=== PATIENT | male | born 1960 | race Caucasian/White ===

== ENCOUNTER 2021-02-13 22:43 | Inpatient (IN) | payer MEDICAID ==
[~2021-02-13] VITALS: Ht 175.3 cm; Wt 74.6 kg
--- NOTE | ~2021-02-13 | HEMODYNAMI ---
PATIENT:ELVIRA TADEO MEDICAL RECORD: [id number] : 56 LOCATION:[facility] D.[id number] ADMISSION DATE: 02/14/21 Generatedon:111:53 Patient name: ELVIRA TADEO Patient #: [id number] SSN: DO B: 1960 Date of study: 02/14/2021 Page: Of Hemodynamic Procedure Report Patient Data Patient Demographics Procedure consent was obtained First Name: ELVIRA Gender: Male Last Name: SHWETHA : 1960 Patient #: [id number] Age: 60 year(s) Race: Additional ID: [id number] Contact details Address: [address] State: [place] City: [place] Zip code: [address] Past Medical History Allergies: No known allergies Admission Admission Data Admission Date: 02/14/2021 Admission Time: 4:38 Arrival Date: 03/16/2021 Arrival Time: 0:00 Admit Source: Other Insurance Payor: Private Room #: [id number] health insurance Height (in.): 68.9 BSA: 1.85 (m2) Height (cm.): 175 BMI: 22.86 (kg/m2) Weight (lbs.): 154.32 Weight (kg.): 70 Lab Results Lab Result Date: 02/14/2021 Lab Result Time: 0:00 Biochemistry Name Units Result Min Max BUN mg/dl 22 --(----)-* 7 18 Creatinine mg/dl 1.4 --(----)*- 0.6 1.3 eGFR ml/min 54 *-(----)-- 90 120 NONAFRICAN CBC Name Units Result Min Max Hematocrit % 43.4 --(*---)-- 42 54 Hemoglobin g/dl 14 --(*---)-- 13.5 17.5 Procedure Procedure Types Cath Procedure Diagnostic Procedure C [facility] w/Coronaries Sedation Charges Moderate Sedation 10-24 minutes Procedure Description Procedure Date Procedure Date: 02/14/2021 Procedure Start Time: 11:39 Procedure End Time: 11:48 Procedure Staff Name Function Cesar Escalera MD Performing Physician Antonieta López RT Monitor Opal Schaefer RT Scrub Wang Elizalde RN Nurse Procedure Data Cath Procedure Fluoroscopy Diagnostic fluoroscopy Total fluoroscopy Time: 1.1 time: 1.1 min min Diagnostic fluoroscopy Total fluoroscopy dose: 361 dose: 361 mGy mGy Contrast Material Contrast Material Type Amount (ml) Isovue 370 50 Entry Location Entry Primary Successful Side Size Upsize Upsize Entry Closure Succes sful Closure Location (Fr) 1 (Fr) 2 (Fr) Remarks Device Remarks Femoral Right 5 Fr Exoseal artery Estimated blood loss: 5 ml Diagnostic catheters Device Type Used For End Catheter Placement MULTIPACK JL 4.0 5Fr Procedure catheter MULTIPACK 3DRC 5Fr Procedure catheter MULTIPACK Pigtail 5 Fr Procedure catheter Procedure Complications No complications Procedure Medications Medication Administration Route Dosage 0.9% NaCl I.V. 100 ml/hr Oxygen etCO2 Nasal cannula 2 l/min Heparin Flush Bag added to field 2 bags (1000units/500ml NS) Lidocaine 2% added to field 20 Cardizem 15 mg/hr (125mg/125ml NS) Versed I.V. 2 mg Fentanyl I.V. 50 mcg Digoxin I.V. 0.5 mg Hemodynamics Rest BSA: 1.85 (m2) HGB: 14 (g/dl) O2 Consumption: Estimated: 242.1 (ml/min) O2 Consu mption indexed: Estimated:130.86 (ml/min/m) Heart Rate: 106 (bpm) Pressure Samples Time Site Value (mmHg) Purpose Heart Use Rate(bpm) 11:44 LV 125/34,47 Snapshot 109 11:45 AO 156/91(128) Pullback 107 Gradients Valve Time Site Site 2 Mean SEP/DFP Peak To Heart Use 1 (mmHg) (sec/min) Peak Rate (mmHg) (bpm) Aortic 11:45 LV AO 56 19 107 156/91(128) Calculations Valve P-P Mean Valve Index Valve Source Name Gradient Area Flow (cm2) Aortic 56 56 Snapshots Pre Cath Intra NCS Post Cath Vital Signs Time Heart Resp SPO2 etCO2 NIBP (mmHg) Rhythm Pain Sedation Rate (ipm) (%) (mmHg) Status Level (bpm) 11:16:03 111 23 98 13.4 117/98(108) A-Fib 0 (11) 10(A) , No pain 11:20:01 108 22 95 18.6 121/97(105) A-Fib 0 (11) 10(A) , No pain 11:24:00 110 21 93 17.9 123/94(102) A-Fib 0 (11) 10(A) , No pain 11:28:00 106 22 90 1.4 117/92(99) A-Fib 0 (11) 10(A) , No pain 11:32:02 109 19 92 8.9 113/85(105) A-Fib 0 (11) 10(A) , No pain 11:36:01 103 19 92 16.4 116/82(104) A-Fib 0 (11) 10(A) , No pain 11:40:03 110 21 93 20.1 109/84(88) A-Fib 0 (11) 9(A) , No pain 11:43:57 105 23 92 18.6 112/96(107) A-Fib 0 (11) 9(A) , No pain 11:47:54 117 23 92 11.9 113/90(101) A-Fib 0 (11) 9(A) , No pain 11:49:41 105 21 92 22.4 114/93(98) A-Fib 0 (11) 9(A) , No pain Medications Time Medication Route Dose Verified Delivered Reason Notes Ef fectiveness by by 11:21:00 0.9% NaCl I.V. 100 Wang Wang Per ml/hr Fide Elizalde physician RN RN 11:21:10 Oxygen etCO2 2 Wang Wang for low 02 Nasal l/min Yamilkaigan Fide sats cannula RN RN 11:21:19 Heparin Flush added to 2 Wang Wang used for Bag field bags Fide Elizalde procedure (1000units/500ml RN RN NS) 11:21:34 Lidocaine 2% added to 20ml Wang Wang for local field vial Lorigan Lorli anesthetic RN RN 11:22:20 Cardizem I.V. 15 Wang Wang for (125mg/125ml NS) drip ( mg/hr Fide Elizalde arrhythmia infusing RN RN upon arrival ) 11:38:18 Versed I.V. 2 mg Wang Wang for Lorigan Lorigan sedation RN RN 11:38:27 Fentanyl I.V. 50 Wang Wang for mcg Fide Elizalde sedation RN RN 11:49:24 Digoxin I.V. 0.5 Wang Wang for mg Fide Elizalde arrhythmia RN rotor balancer Log Time Note 10:47:14 Informed consent obtained and on chart 10:47:38 Procedure Status Urgent Heart Cath (IP). 10:47:39 Time tracking: Regular hours (M-F 7:00 - 5:00) 10:47:43 Plan of Care:Hemodynamics will remain stable., Cardiac rhythm will remain stable., Comfort level will be maintained., Respiratory function will remain adequate., Patient/ family verbilizes understanding of procedure., Procedure tolerated without complication., Recovers from procedure without complications.. 10:47:45 Wang Elizalde RN sent for patient. Start room use. 10:49:47 Lab Result : BUN 22 mg/dl 10:49:47 Lab Result : Creatinine 1.4 mg/dl 10:49:47 Lab Result : eGFR NONAFRICAN 54 ml/min 10:49:47 Lab Result : Hemoglobin 14 g/dl 10:49:47 Lab Result : Hematocrit 43.4 % 10:49:50 Lab results completed and on chart. 10:49:57 Patient Weight : 154.32 lbs 10:50:00 Patient Height : 68.9 inches 10:50:04 Arrival Date: 03/16/2021 12:00:00 AM 11:15:06 Patient received from Med II to CCL 2 Alert and oriented. Tansferred to table in Supine position. 11:15:07 Warm blankets applied, and lovely hugger turned on for patient comfort. 11:15:07 Correct patient and procedure confirmed by team. 11:15:08 ECG and BP/O2 sat monitors applied to patient. 11:15:08 Vital chart was started 11:15:11 Baseline sample Acquired. 11:15:22 Full Disclosure recording started 11:15:28 H&P Date Dictated: 02/14/2021 ER History on chart., New H&P dictated by physician.. 11:15:35 Pre-procedure instructions explained to patient. 11:15:35 Pre-op teaching completed and patient verbalized understanding. 11:18:40 Family unavailable. 11:18:41 Patient NPO since Midnight. 11:18:46 Patient allergic to No known allergies 11:18:53 Is the patient allergic to Iodine/contrast media? No. 11:18:54 Was the patient premedicated? Yes 11:18:56 Is patient on blood thinner?No 11:18:57 Patient diabetic? No. 11:18:59 If diabetic: On Metformin? N/A 11:18:59 ----Pre-sedation anethsthesia assessment.---- 11:19:02 Previous problem with sedation/anesthesia? No ? 11:19:03 Snore? Yes 11:19:04 Sleep apnea? No 11:19:05 Deviated septum? No 11:19:06 Opens mouth fully? Yes 11:19:07 Sticks out tongue? Yes 11:19:09 Airway obstruction? No ? 11:19:13 Dentures? Yes in tight 11:19:18 Patient pain scale 0/10 ?. 11:19:29 IV patent on arrival in right antecubital with 0.9% NaCl at KVO. 11:19:35 Stress Test: no; N/A ? 11:19:36 Right groin area was prepped with chlora-prep and draped in sterile fashion 11:19:37 Alarms reviewed by R. N. 11:19:38 Sharps counted by scrub and verified by R.N. 11:19:40 Use device set Femoral Dx 11:19:42 ACIST Syringe (11252) opened to sterile field. 11:19:43 Bag Decanter (2002S) opened to sterile field. 11:19:43 Medline Cath Pack ([id number]) opened to sterile field. 11:19:45 ACIST Hand Control (15120) opened to sterile field. 11:19:45 ACIST Manifold (43180) opened to sterile field. 11:19:46 DIAGNOSTIC Multipack 5Fr catheter set ([id number]) opened to sterile field. 11:19:47 Tegaderm 4 x 4 (1626W) opened to sterile field. 11:19:48 SHEATH 5FR Mead (HFP882) opened to sterile field. 11:19:48 EMERALD Guide Wire (037-574) opened to sterile field. 11:19:57 Pre procedure: right dorsailis pedis pulse 1+ Palpable, but thready & weak; easily obliterated 11:21:00 0.9% NaCl 100 ml/hr I.V. was administered by Wang Elizalde RN; Per physician; Verbal order read back and verified. 11:21:10 Oxygen 2 l/min etCO2 Nasal cannula was administered by Wang Elizalde RN; for low 02 sats; Verbal order read back and verified. 11:21:19 Heparin Flush Bag (1000units/500ml NS) 2 bags added to field was administered by Wang Elizalde RN; used for procedure; Verbal order read back and verified. 11:21:34 Lidocaine 2% 20ml vial added to field was administered by Wang Elizalde RN; for local anesthetic; Verbal order read back and verified. 11:22:20 Cardizem (125mg/125ml NS) 15 mg/hr I.V. drip ( infusing upon arrival ) was administered by Wang Elizalde RN; for arrhythmia; Verbal order read back and verified. 11:23:21 Admit Source: Other 11:23:23 Insurance Payor : Private health insurance 11:26:55 Risk of Mortality: 0.4 11:26:57 Risk of blood transfusion: 1.2 11:27:00 Risk of KARSON: 2.8 11:36:53 --------ALL STOP TIME OUT------ 11:36:54 Final Timeout: patient, procedure, and site verified with staff and physician. All members of the team are in agreement. 11:36:55 Right groin site verified by team. 11:36:58 Fire Safety Assessment: A--An alcohol-based skin anteseptic being used preoperatively., C--Open oxygen or nitrous oxide is being used., D--An ESU, laser, or fiber-optic light is being used. 11:37:01 Physical assessment completed. ASA score P 2 - A patient with mild systemic disease as per Cesar Escalera MD. 11:37:10 3a) 45-59 Moderately reduced kidney function. 11:37:13 Maximum allowable contrast dose (3.7 X eGFR X 0.75)150 ml. 11:37:17 Sedation plan: IV Moderate Sedation Medication:Versed, Fentanyl 11:38:18 Versed 2 mg I.V. was administered by Wang Elizalde RN; for sedation; Verbal order read back and verified. 11:38:27 Fentanyl 50 mcg I.V. was administered by Wang Elizalde RN; for sedation; Verbal order read back and verified. 11:39:32 Procedure started. 11:39:41 Local anesthetic to right femoral artery with Lidocaine 2% by Cesar Escalera MD.INITIAL ACCESS ONLY 11:40:19 A 5 Fr sheath was inserted into the Right Femoral artery 11:40:40 A MULTIPACK JL 4.0 5Fr catheter was advanced over the wire and used for Procedure. 11:41:17 LCA angiography performed. 11:41:19 Injector settings: Ml/sec: 3, Volume: 6, 11:42:17 Catheter removed. 11:42:35 A MULTIPACK 3DRC 5Fr catheter was advanced over the wire and used for Procedure. 11:43:14 RCA angiography performed. 11:43:17 Injector settings: Ml/sec: 3, Volume: 6, 11:43:25 Catheter exchanged over wire. 11:43:32 A MULTIPACK Pigtail 5 Fr catheter was advanced over the wire and used for Procedure. 11:44:02 LV gram done using DE GUZMAN 11:44:49 LV hemodynamics recorded. 11:44:53 Injector settings: Ml/sec: 5, Volume: 15, 11:45:08 EF : 20 % 11:45:19 Catheter removed. 11:45:23 EXOSEAL 5Fr (EX500) opened to sterile field. 11:45:33 Sheath removed intact; hemostasis achieved with Exoseal to the Right Femoral artery. 11:46:22 Procedure ended.(Physican Out) 11:46:31 Fluoroscopy time 01.10 minutes. 11:46:34 Fluoroscopy dose: 361 mGy 11:46:34 Flurop Dose total: 361 11:46:39 Dose Area Product 12092 mGy/cm. 11:46:49 Contrast amount:Isovue 370 50ml. 11:46:51 Maximum allowable dose exceeded? No. 11:46:52 Sharps counted by scrub and verified by R.N. 11:46:56 Post-op/insertion site Right Femoral artery dressed using a 4 x 4 and Tegaderm. 11:47:00 Post right femoral artery:stable, soft, clean and dry 11:47:07 Post Procedure Pulses reassessed and unchanged 11:47:09 Post procedure: right dorsailis pedis pulse 1+ Palpable, but thready & weak; easily obliterated. 11:47:14 Post-procedure physical assessment completed. ASA score P 2 - A patient with mild systemic disease as per Cesar Escalera MD. 11:47:28 Post procedure rhythm: unchanged. 11:47:30 Estimated blood loss: 5 ml 11:47:31 Post procedure instruction explained to patient.Patient verbalizes understanding. 11:47:32 Patient needs reinforcement of post procedure teaching. 11:47:50 Procedure type changed to Cath procedure, Diagnostic procedure, LHC, [facility] w/Coronaries, Sedation Charges, Moderate Sedation 10-24 minutes 11:48:08 Procedure and supply charges have been captured, reviewed, submitted and are correct. 11:48:11 Procedure Complication : No complications 11:48:14 Vital chart was stopped 11:48:18 [facility] Findings: MVD- CABG consult 11:48:19 Operative report dictated upon procedure completion. 11:48:20 See physician's report for complete and final results. 11:48:22 Report given to [facility]. 11:48:26 Patient transfered to [facility] with Bed. 11:48:28 Procedure ended. 11:48:28 Full Disclosure recording stopped 11:48:35 End room use (Document Last) 11:48:44 End room use (Document Last) 11:49:24 Digoxin 0.5 mg I.V. was administered by Wang Elizalde RN; for arrhythmia; Verbal order read back and verified. Device Usage Item Name Manufacture Quantity Catalog Hospital Part Current Minimal L ot# / Number Charge Number Stock Stock Serial# Code ACIST Acist 1 56863 550155 280149 751064 20 Syringe Medical (91517) Systems Inc Bag Microtek 1 764880 00220 402000 5 Decanter Medical Inc. () Medline Medline 1 [id number] 781636 62888 007524 5 Cath Pack ([id number]) ACIST Hand Acist 1 21090 522542 684742 677599 5 Control Medical (12740) Systems Inc ACIST Acist 1 20081 131847 358819 787469 5 Manifold Medical (09533) Systems Inc DIAGNOSTIC Cardinal 1 EQ7069 987635 37710 525577 30 [facility] TravelTipz.ru 5Fr catheter set (BM4021) Tegaderm 4 3M 1 1626W 529632 177146 635548 5 x 4 (1626W) SHEATH 5FR Terumo 1 MXI234 770522 502463 758181 5 Mead (LQS745) EMERALD Cardinal 1 325-776 079172 488455 451940 5 Guide Wire Health (858-622) MULTIPACK Cardinal 1 801579 5 JL 4.0 5Fr Health catheter MULTIPACK Cardinal 1 330695 5 3DRC 5Fr Health catheter MULTIPACK Cardinal 1 822686 5 Pigtail 5 Health Fr catheter EXOSEAL 5Fr Cardinal 1 EX500 593449 722146 552067 10 (EX500) Health Signature Audit [place] Stage Time Signature Unsigned Intra-Procedure 02/14/2021 Antonieta López 11:48:44 AM RT(R) Intra-Procedure 02/14/2021 Wang 11:48:59 AM Fide ANDERSEN Intra-Procedure 02/14/2021 Cesar Ramos 11:53:09 AM Bhaskar DUNHAM Signatures Performing Physician : Signature : Cesar Escalera MD Date : Time : Monitor : Antonieta López Signature : RT Date : Time : Nurse : Wang Elizalde Signature : RN Date : Time : [facility] [address] [place] [address]
[2021-02-13 23:21] LABS: BASOPHILS 0.7 % (0-2); EOSINOPHILS 0.7 % (0-7); HEMATOCRIT 43.4 % (42.0-54.0); LYMPHOCYTES 28.9 % (15-50); MCH 28.6 pg (26.0-34.0); MCHC 32.2 g/dL (31.0-37.0); MEAN PLATELET VOLUME 9.6 fL (7.4-10.4); MONOCYTES 12.9 % (2-11); NEUTROPHILS 56.8 % (40-80); PLATELET COUNT 159 10x3/uL (130-400); RBC 4.87 10x6/uL (4.20-6.10); RDW 13.2 % (11.5-14.5); WBC 11.7 10x3/uL (4.8-10.8)
[2021-02-13 23:27] LABS: APTT 30.3 SECONDS (22.8-39.4); CALC OSMOLALITY 282 mosm/kg (275-300); CALCIUM 8.9 mg/dL (8.5-10.1); CARBON DIOXIDE 22.8 mmol/L (21.0-32.0); CHLORIDE - SERUM 105 mmol/L (98-107); CREATININE - SERUM 1.4 mg/dL (0.6-1.3); GLUCOSE 137 mg/dL (74-106); INR 1.37 (0.85-1.17); POTASSIUM - SERUM 4.2 mmol/L (3.5-5.1); PROTIME 15.6 SECONDS (11.6-15.0); SODIUM 139 mmol/L (136-145); UREA NITROGEN 22 mg/dL (7-18); eGFR NON AFRICAN AMERICAN 54 mL/min (90-120)
[2021-02-13 23:32] VITALS: BP 116/93
--- NOTE | 2021-02-13 23:39 | NUR ---
PATIENT CARDIZEM TIRATED UP TO 15MG/HR PER HCP VERBAL ORDERS AT 2319
[2021-02-13 23:48] LABS: ALBUMIN 3.4 g/dL (3.4-5.0); ALKALINE PHOSPHATASE 114 U/L (30-120); ALT (SGPT) 60 U/L (10-68); CKMB 16.9 U/L (0.0-3.6); CREATINE KINASE 234 UL (21-232); MAGNESIUM - SERUM 2.1 mg/dL (1.8-2.4); PROTEIN - SERUM 6.9 g/dL (6.4-8.2)
[2021-02-14] VITALS (9 sets, daily range): BP systolic 109–131; BP diastolic 78–90; BMI 22.9
[2021-02-14 00:09] LABS: TROPONIN-I 5.473 ng/mL (0.000-0.060)
[2021-02-14 00:48] LABS: THYROID STIMULATING HORMONE 7.7 uIU/mL (0.36-3.74)
--- NOTE | 2021-02-14 06:47 | NUR ---
RECIEVED REPORT FROM ER. ARRIVED TO FLOOR ON STRETCHER. ALERT AND ORIENTED X4. UP AD KAREN. DENIES ANY PAIN AT THIS TIME OR NEEDS. ASSESSMENT COMPLETED.
--- NOTE | 2021-02-14 11:15 | NUR ---
OFF FLOOR TO TANK CREWMEMBER
--- NOTE | 2021-02-14 11:28 | NUR ---
LEFT FOREARM IV D/C, TIP INTACT. DISCHARGE INSTRUCTIONS GIVEN VERBALLY AND HANDOUTS PROVIDED. TAKEN DOWN TO ED ENTRANCE VIA WHEELCHAIR.
--- NOTE | 2021-02-14 12:28 | NUR ---
BACK FROM [employer]. FREQUENT VITALS SET UP.
--- NOTE | 2021-02-14 14:28 | CN ---
PATIENT NAME:BERTIN TADEO MEDICAL RECORD: [id number] : 56 LOCATION:[facility].2 ADMIT DATE: 02/14/21 ACCOUNT: [id number] CONSULTING PHYSICIAN: FRANK CLAUDIO MD REFERRING PHYSICIAN: MASHA HEBERT MD DATE OF CONSULTATION: 02/14/2021 HISTORY OF PRESENT ILLNESS: A 60-year-old gentleman with no known history of coronary artery disease, actually on no chronic medications, presented to the ER after about a week history of worsening dyspnea on exertion, shortness of breath, was found to have atrial fib, RVR, subsequently underwent CTA which showed no evidence of pulmonary embolus, no aortic dissection. Troponin was found to be 5. We are asked to see him concerning his cardiovascular status. PAST MEDICAL HISTORY: Unremarkable. ALLERGIES: None known. SOCIAL HISTORY: Nonsmoker, nondrinker, easily takes care all of his ADLs, actually used to exercise quite vigorously up until the last 3-4 months. REVIEW OF SYSTEMS: The patient reports easy bruising but reports no swollen glands. The patient reports no fever, no night sweats, no significant weight gain, no significant weight loss. No significant exercise tolerance. The patient reports no dry eyes, no irritation, no vision change. Patient reports no difficulty hearing and no ear pain. Patient reports no frequent nose bleeds or nose and sinus problems. Patient reports on arm pain on exertion. No shortness of breath while lying down. No history of heart murmur. Patient reports no cough, no wheezing or coughing up blood. Patient reports no abdominal pain, no vomiting. Normal appetite. No diarrhea and not vomiting blood. No nausea and no constipation. Patient reports no incontinence. No difficulty urinating. No hematuria. No increased frequency. Patient reports no muscle aches. No weakness, no arthralgias, no back pain. No swelling of the extremities. Patient reports no abnormal mole, no jaundice, no rashes. Reports no loss of consciousness. No weakness and no numbness. No seizures, dizziness, or headaches. The patient reports no depression, no sleep disturbance, feeling safe in a relationship and no alcohol abuse. Patient reports on fatigue. Reports no runny nose or sinus pressure. No itching, no hives, and no frequent sneezing. PHYSICAL EXAMINATION: GENERAL: Pleasant. No acute distress, appears stated age, alert and oriented. VITAL SIGNS: 131/90, pulse 96 and irregular. HEENT: Normocephalic, atraumatic. NECK: Questionable JVD, no more than 2 cm. HEART: Irregular. S3 gallop is noted. LUNGS: Diminished air excursion, few expiratory wheezes. ABDOMEN: Soft and nontender. EXTREMITIES: Pulses 2+. With no edema. NEUROLOGIC: Grossly intact. DIAGNOSTIC DATA: EKG shows nonspecific ST-T changes, AFib. IMPRESSION: Ejl-LU-zepgagolw myocardial infarction with elevation of greater than 5 on his troponin. We will plan for angiography. Given the insidious CONSULT REPORT [id number] BERTIN TADEO, I cannot rule out a myopathic process at this time. Further recommendation based on the above. In the interim, will use diltiazem for rate control as you are doing. TRANSINT:[id number] Voice Confirmation ID: [id number] DOCUMENT ID: [id number] FRANK CLAUDIO MD at 1428 CC: [id number] DICTATION DATE: 02/14/21840 TROUBLE LOCATOR TEST DESK: 02/14/21 1037 ADM IN [facility] [address] [place] [address]
[2021-02-14 16:12] LABS: BILIRUBIN NEGATIVE (NEGATIVE); KETONE NEGATIVE (NEGATIVE); NITRITE NEGATIVE (NEGATIVE); UROBILINOGEN NORMAL mg/dL (< 2)
--- NOTE | 2021-02-14 16:50 | NUR ---
HEART RATE 67 NORMAL SINUS. STILL ON CARDIZEM DRIP @ 15. CALLED CARDIOLOGY. ORDERS FROM ANALI RAMIREZ TO CHANGE DRIP TO 5ML/HR. FOLLOW NURSING MESSAGE FOR FURTHER ORDERS.
[2021-02-14 17:44] LABS: UDS - AMPHET NEGATIVE QUAL (NEGATIVE); UDS - BARB NEGATIVE QUAL (NEGATIVE); UDS - BENZO POSITIVE QUAL (NEGATIVE); UDS - COCAINE NEGATIVE QUAL (NEGATIVE); UDS - OPIATE NEGATIVE QUAL (NEGATIVE); UDS - PCP NEGATIVE QUAL (NEGATIVE); UDS - THC POSITIVE QUAL (NEGATIVE)
[2021-02-15] VITALS (8 sets, daily range): BP systolic 109–128; BP diastolic 67–87
--- NOTE | 2021-02-15 04:34 | NUR ---
REPORT RECEIVED. PT A&O, RESTING IN BED. NO S/S OF DISTRESS OBSERVED. RR EVEN & UNLABORED ON 2L. O2 SAT 85%. TITRATED O2 TO 5L TO MAINTAIN O2 SAT OF 93%. IV TO R AC, CARDIZEM INFUSING AT 5CC/HR. SR 79 ON TELE. BED LOCKED AND LOWERED, CL IN REACH. ASSESSMENT COMPLETE. WILL CONT POC.
--- NOTE | 2021-02-15 04:38 | NUR ---
CARDIZEM DRIP STOPPED PER NURSING MESSAGE BY ASHLEY DANIEL APN WHEN SOTALOL WAS GIVEN AT 2246 02/14/21.
[2021-02-15 08:26] LABS: ALBUMIN 2.6 g/dL (3.4-5.0); ALKALINE PHOSPHATASE 85 U/L (30-120); BILIRUBIN - TOTAL 1.17 mg/dL (0.2-1.3); CALCIUM 8.1 mg/dL (8.5-10.1); CARBON DIOXIDE 20.1 mmol/L (21.0-32.0); CHLORIDE - SERUM 106 mmol/L (98-107); POTASSIUM - SERUM 3.9 mmol/L (3.5-5.1); PRO BNP 3288 pg/mL (0-125); PROTEIN - SERUM 5.8 g/dL (6.4-8.2); SODIUM 136 mmol/L (136-145)
[2021-02-15 08:29] LABS: ALT (SGPT) 41 U/L (10-68); CALC OSMOLALITY 270 mosm/kg (275-300); GLUCOSE 88 mg/dL (74-106); UREA NITROGEN 12 mg/dL (7-18); eGFR NON AFRICAN AMERICAN 80 mL/min (90-120)
--- NOTE | 2021-02-15 20:00 | NUR ---
PT REC'D TO ROOM CV01 FROM FLOOR, ASSISTED TO BED AND ALL MONITORS ESTABLISHED, PT AWAKE, ALERT, AND ORIENTED, O2 @ 5L VIA HF, LEFT FOREARM PIV WITH DOBUTAMINE @ 3MCG/KG/MIN OR 6.8CC, TREADWELL, DENIES PAIN OR NEEDS, BED IN LOW POSITION, SR UP X 2, CALL LIGHT IN REACH.
--- NOTE | 2021-02-15 21:00 | NUR ---
EVENING MEDS GIVEN ORDERED
--- NOTE | 2021-02-15 22:00 | NUR ---
PT ASSISTED UP TO BATHROOM WITH MINIMAL ASSIST, PT DENIES FURTHER NEEDS.
[2021-02-16] VITALS (32 sets, daily range): BP systolic 107–139; BP diastolic 61–91; Ht 175.3 cm; Wt 74.6 kg
--- NOTE | 2021-02-16 00:30 | NUR ---
PT UP TO BATHROOM, CALL LIGHT ON, UPON ENTERING ROOM PT DISCONNECTED FROM MONITOR STATES "I WOULD LIKE TO GO HOME I FEEL BETTER NOW" ,EXPLAINED TO PT THE [facility], STATES "I CAN'T SLEEP I JUST NEED SOME GOOD REST", STATES " I WILL TALK T DR. CABRAL IN THE MORNING ABOUT A SLEEPING PILL", PT ASSISTED BACK TO BED, MONITORS CONNECTED, BED IN LOW POSITION, CALL LIGHT IN REACH.
--- NOTE | 2021-02-16 10:22 | NUR ---
PT SITTING ON SIDE OF BED. SPOUSE AT BEDSIDE.
--- NOTE | 2021-02-16 17:07 | NUR ---
PATIENT RESTING COMFORTABLY VISITING WITH AT BS. VSS. PATIENT DENIES ANY NEEDS OR PAIN. WILL CONTINUE TO MONITOR. SR UP X 2 B ED IN LOW POSITION AND CALL LIGHT IN REACH.
[2021-02-17] VITALS (42 sets, daily range): BP systolic 92–139; BP diastolic 49–97
--- NOTE | 2021-02-17 06:08 | NUR ---
Shift summary: No change in patient condition. Resting comfortably. Dobutamine continues as ordered. Denies pain or distress.
--- NOTE | 2021-02-17 07:58 | NUR ---
AWAKES EASILY TO VERBAL STIMULI SKIN WARM AND DRY. DENIES PAIN. DOBUTAMINE INFUSING AT 3 MCG/KG/MIN.VOIDING KRIS IN URINAL. MONITOR SR
[2021-02-17 08:01] LABS: ALBUMIN 2.4 g/dL (3.4-5.0); ALKALINE PHOSPHATASE 92 U/L (30-120); ALT (SGPT) 60 U/L (10-68); CALC OSMOLALITY 267 mosm/kg (275-300); CALCIUM 8.6 mg/dL (8.5-10.1); CARBON DIOXIDE 22.3 mmol/L (21.0-32.0); CHLORIDE - SERUM 103 mmol/L (98-107); GLUCOSE 115 mg/dL (74-106); POTASSIUM - SERUM 4.2 mmol/L (3.5-5.1); PROTEIN - SERUM 6.4 g/dL (6.4-8.2); SODIUM 134 mmol/L (136-145); UREA NITROGEN 11 mg/dL (7-18); eGFR NON AFRICAN AMERICAN 80 mL/min (90-120)
[2021-02-17 08:49] LABS: BASOPHILS 0.5 % (0-2); EOSINOPHILS 0.6 % (0-7); HEMATOCRIT 44.7 % (42.0-54.0); HEMOGLOBIN 14.7 g/dL (13.5-17.5); LYMPHOCYTES 11.7 % (15-50); MCH 28.8 pg (26.0-34.0); MCHC 32.9 g/dL (31.0-37.0); MCV 87.6 fL (80.0-100.0); MEAN PLATELET VOLUME 9.2 fL (7.4-10.4); MONOCYTES 9.6 % (2-11); NEUTROPHILS 77.6 % (40-80); PLATELET COUNT 178 10x3/uL (130-400); RBC 5.11 10x6/uL (4.20-6.10); RDW 13.1 % (11.5-14.5); WBC 10.3 10x3/uL (4.8-10.8)
--- NOTE | 2021-02-17 10:33 | NUR ---
FAMILY HERE UPDATES PROVIDED
--- NOTE | 2021-02-17 12:02 | NUR ---
UP AMBULATING IN ROOM, TO BATHROOM. UP IN CHAIR AT BEDSIDE FOR LUNCH. GOOD GAIT. NO DISTRESS. DENIES PAIN
--- NOTE | 2021-02-17 20:00 | NUR ---
REC'D REPORT FROM OFF-GOING NURSE AND ASSUMED CARE OF PT. LYING IN BED, EYES CLOSED BUT WOKE UP READILY WHEN SPOKE TO. INITIAL ASSESSMENT COMPLETED AND RECORDED PER FLOW SHEET. DOBUTAMINE INFUSING WITHOUT DIFFICULT. USING URINAL AD KAREN. DENIES NEEDS AT PRESENT. WILL CONT WITH CURRENT PLAN OF CARE AND ENCOURAGE PT TO AMBULATE.
--- NOTE | 2021-02-17 23:00 | NUR ---
TOOK 9PM MEDS WITHOUT DIFFICULT AND WENT BACK TO SLEEP. VS REMAIN STABLE. WILL CONT TO MONITOR.
[2021-02-18] VITALS (24 sets, daily range): BP systolic 105–130; BP diastolic 62–93
--- NOTE | 2021-02-18 02:35 | NUR ---
CONT TO LIE QUIETLY W/O COMPLAINT. VS REMAIN STABLE. VOIDING OCC IN URINAL. DENIES NEEDS AT PRESENT.
[2021-02-18 04:29] LABS: BASOPHILS 0.5 % (0-2); EOSINOPHILS 1.2 % (0-7); HEMATOCRIT 44.1 % (42.0-54.0); HEMOGLOBIN 14.6 g/dL (13.5-17.5); LYMPHOCYTES 18.8 % (15-50); MCH 28.9 pg (26.0-34.0); MCHC 33.1 g/dL (31.0-37.0); MCV 87.1 fL (80.0-100.0); MEAN PLATELET VOLUME 9.1 fL (7.4-10.4); MONOCYTES 11.7 % (2-11); NEUTROPHILS 67.8 % (40-80); PLATELET COUNT 193 10x3/uL (130-400); RBC 5.07 10x6/uL (4.20-6.10); WBC 9.4 10x3/uL (4.8-10.8)
[2021-02-18 04:48] LABS: ALBUMIN 2.5 g/dL (3.4-5.0); ALKALINE PHOSPHATASE 117 U/L (30-120); BILIRUBIN - TOTAL 0.76 mg/dL (0.2-1.3); CALCIUM 8.9 mg/dL (8.5-10.1); CARBON DIOXIDE 24.7 mmol/L (21.0-32.0); CHLORIDE - SERUM 101 mmol/L (98-107); GLUCOSE 114 mg/dL (74-106); POTASSIUM - SERUM 4.2 mmol/L (3.5-5.1); SODIUM 134 mmol/L (136-145); eGFR NON AFRICAN AMERICAN 80 mL/min (90-120)
[2021-02-18 04:49] LABS: ALT (SGPT) 95 U/L (10-68); CALC OSMOLALITY 269 mosm/kg (275-300); UREA NITROGEN 14 mg/dL (7-18)
--- NOTE | 2021-02-18 07:00 | NUR ---
AMBULATING IN [place] WITH IV POLE. VISITING WITH OTHER PATIENTS.
--- NOTE | 2021-02-18 08:17 | NUR ---
UP IN CHAIR AT BEDSIDE. BREAKFAST SERVED. DENIES PAIN.
--- NOTE | 2021-02-18 08:52 | NUR ---
IV RIGHT WRIST RED AND SWOLLEN. RESTARTED RIGHT FOREARM 22 G X 1 ATTEMPT. PATIENT TOLERATED WELL
--- NOTE | 2021-02-18 19:00 | NUR ---
BEDSIDE REPORT COMPLETED WITH OFF GOING NURSE. PT IS RESTING IN BED WTIH EYES CLOSED AT THIS TIME. SHIFT ASSESSMENT COMPLETED, SEE FLOWSHEET FOR DETAILS. NO NEEDS VOICED AT THIS TIME BY PT. NO S/S OF DISTRESS NOTED. WILL CONTINUE TO MONITOR.
[2021-02-19] VITALS (47 sets, daily range): BP systolic 106–137; BP diastolic 57–667
[2021-02-19 04:41] LABS: BASOPHILS 0.6 % (0-2); EOSINOPHILS 2.2 % (0-7); HEMATOCRIT 43.4 % (42.0-54.0); HEMOGLOBIN 14.2 g/dL (13.5-17.5); LYMPHOCYTES 22.8 % (15-50); MCH 28.7 pg (26.0-34.0); MCHC 32.8 g/dL (31.0-37.0); MCV 87.5 fL (80.0-100.0); MEAN PLATELET VOLUME 9.6 fL (7.4-10.4); MONOCYTES 12.2 % (2-11); NEUTROPHILS 62.2 % (40-80); PLATELET COUNT 212 10x3/uL (130-400); RBC 4.96 10x6/uL (4.20-6.10); RDW 13.3 % (11.5-14.5); WBC 7.9 10x3/uL (4.8-10.8)
[2021-02-19 04:58] LABS: ALBUMIN 2.5 g/dL (3.4-5.0); ALKALINE PHOSPHATASE 155 U/L (30-120); BILIRUBIN - TOTAL 0.62 mg/dL (0.2-1.3); CALCIUM 9.1 mg/dL (8.5-10.1); CHLORIDE - SERUM 100 mmol/L (98-107); GLUCOSE 112 mg/dL (74-106); POTASSIUM - SERUM 4.4 mmol/L (3.5-5.1); SODIUM 136 mmol/L (136-145); eGFR NON AFRICAN AMERICAN 80 mL/min (90-120)
[2021-02-19 05:02] LABS: ALT (SGPT) 145 U/L (10-68); CALC OSMOLALITY 274 mosm/kg (275-300); UREA NITROGEN 18 mg/dL (7-18)
--- NOTE | 2021-02-19 13:07 | NUR ---
Nutrition Follow-up: NPO for CABG today. Good/fair PO intake otherwise (69% avg x 8 meals). Wt: 155.4# (02/19) Labs noted: Glu 112, Alb 2.5, elev LFTs Meds reviewed -Rec advance diet as tolerated to cardiac diet as medically feasible following surgery. -Monitor wt. -RD will follow up within 2-3 days.
[2021-02-19 14:40] LABS: BASOPHILS 0.4 % (0-2); EOSINOPHILS 0.4 % (0-7); HEMATOCRIT 39.2 % (42.0-54.0); HEMOGLOBIN 12.5 g/dL (13.5-17.5); LYMPHOCYTES 12.5 % (15-50); MCH 27.9 pg (26.0-34.0); MCHC 31.9 g/dL (31.0-37.0); MCV 87.4 fL (80.0-100.0); MEAN PLATELET VOLUME 9.1 fL (7.4-10.4); MONOCYTES 8.9 % (2-11); NEUTROPHILS 77.8 % (40-80); PLATELET COUNT 178 10x3/uL (130-400); RBC 4.49 10x6/uL (4.20-6.10); RDW 13.1 % (11.5-14.5)
[2021-02-19 14:46] LABS: WBC 11.7 10x3/uL (4.8-10.8)
[2021-02-19 14:47] LABS: APTT 40.9 SECONDS (22.8-39.4); INR 1.48 (0.85-1.17); PROTIME 16.7 SECONDS (11.6-15.0)
[2021-02-19 15:07] LABS: ALBUMIN 2.3 g/dL (3.4-5.0); ALKALINE PHOSPHATASE 104 U/L (30-120); ALT (SGPT) 92 U/L (10-68); BILIRUBIN - TOTAL 0.89 mg/dL (0.2-1.3); CALC OSMOLALITY 278 mosm/kg (275-300); CALCIUM 8.2 mg/dL (8.5-10.1); CARBON DIOXIDE 24.6 mmol/L (21.0-32.0); CHLORIDE - SERUM 105 mmol/L (98-107); CREATININE - SERUM 0.9 mg/dL (0.6-1.3); GLUCOSE 165 mg/dL (74-106); PROTEIN - SERUM 5.6 g/dL (6.4-8.2); SODIUM 137 mmol/L (136-145); UREA NITROGEN 15 mg/dL (7-18); eGFR NON AFRICAN AMERICAN > 90 mL/min (90-120)
--- NOTE | 2021-02-19 16:22 | NUR ---
1410 PT RECIEVED TO ROOM SEDATED ON VENT R IJ CVL DRESSING CDI, SWAN TERRA LOCKED AT APPROX 50CM, PER DR CABRAL EPI TURNED OFF WHEN ARRIVED TO ROOM, TPM DDD80, PER DR CABRAL AAI 80 AMA 20, CTX2 Y'D TOGETHER, GUERO DRAIN COMPRESSED, SORENSON DRAINING YELLOW URINE, RLE AND LUE HARVEST SITES WRAPPED WITH COBAN, R RADIAL AND R GROIN ARTERIAL LINE ZEROED WITH GOOD WAVEFORM, FAMILY UPDATED BY DR CABRAL AND DENY ALL QUESTIONS
--- NOTE | 2021-02-19 17:38 | NUR ---
ABG & NIF & VITAL CALLED TO DR CABRAL ORDERS TO EXTUBATE AND DC FEMORAL A LINE. LOLA ZHAO PER PROTOCAL RESTRAINTS REMOVED AND EXTUBATED AT 9398
[2021-02-20] VITALS (67 sets, daily range): BP systolic 113–139; BP diastolic 58–94
[2021-02-20 05:26] LABS: BASOPHILS 0.4 % (0-2); EOSINOPHILS 0 % (0-7); HEMATOCRIT 34.7 % (42.0-54.0); HEMOGLOBIN 11.1 g/dL (13.5-17.5); LYMPHOCYTES 12.5 % (15-50); MCH 28.2 pg (26.0-34.0); MCHC 31.9 g/dL (31.0-37.0); MCV 88.1 fL (80.0-100.0); MEAN PLATELET VOLUME 9.7 fL (7.4-10.4); MONOCYTES 6.6 % (2-11); NEUTROPHILS 80.5 % (40-80); PLATELET COUNT 158 10x3/uL (130-400); RBC 3.93 10x6/uL (4.20-6.10); RDW 13.1 % (11.5-14.5); WBC 11.3 10x3/uL (4.8-10.8)
[2021-02-20 06:19] LABS: ALBUMIN 2.1 g/dL (3.4-5.0); ALKALINE PHOSPHATASE 91 U/L (30-120); ALT (SGPT) 76 U/L (10-68); CALC OSMOLALITY 276 mosm/kg (275-300); CALCIUM 8.1 mg/dL (8.5-10.1); CARBON DIOXIDE 26.4 mmol/L (21.0-32.0); CHLORIDE - SERUM 103 mmol/L (98-107); GLUCOSE 137 mg/dL (74-106); POTASSIUM - SERUM 4.7 mmol/L (3.5-5.1); PROTEIN - SERUM 5.5 g/dL (6.4-8.2); SODIUM 137 mmol/L (136-145); T4 THYROXINE 5.5 ug/dL (4.7-13.3); UREA NITROGEN 15 mg/dL (7-18); eGFR NON AFRICAN AMERICAN 80 mL/min (90-120)
--- NOTE | 2021-02-20 08:13 | EC ---
PATIENT:BERTIN TADEO DATE OF SERVICE: 02/14/21 SEX: M MEDICAL RECORD: [id number] DATE OF : 56 LOCATION:[place] [address] AGE OF PATIENT: 60 ADMISSION DATE: 02/14/21 REFERRING PHYSICIAN: INTERPRETING PHYSICIAN: FRANK CLAUDIO MD ECHOCARDIOGRAM REPORT ECHO CHARGES 5 ECHO LIMITED Date: 02/16/21 CLINICAL DIAGNOSIS: CAD ECHOCARDIOGRAPHIC MEASUREMENTS (adult normal given) AC root (d.<3.7cm) 3.6 cm LV Septum d (<1.2 cm> 1.0 cm Valve Excursion 1.9 cm LV Septum (systole) 1.1 cm Left Atria (s.<4.0cm> 4.0 cm LVPW d(<1.2cm) 1.1 cm RV (d.<2.3cm) 4.7 cm LVPW (sytole) 1.2 cm LV diastole(<5.6CM) 5.3 cm MV E-F(>70mm/sec) cm LV systole 4.3 cm LVOT Diameter 2.3 cm MV exc.(>10mm) cm Est.ejection fraction (50-75%) 40 % DOPPLER: LVIT cm/sec A 49 cm/sec E 102 cm/sec LA cm/sec RVSP 31 mmHg LVOT 82 cm/sec AOP1/2T m/s Asc. Ao 130 cm/sec RVOT 47 cm/sec RA 4.7 cm/sec PA 57 cm/sec AV Gradient Peak 6 mmHg AV Mean 3 mmHg AV Area cm MV Gradient Peak 6 mmHg MV Mean 1 mmHg MV Area cm COMMENTS: Drafter Automotive Design: Renetta JOHNSTON Elementary Assistant Teacher: 3 Dr. Avitia TAPE# Pericardial Effusion Y DATE OF SERVICE: Adequate 2D, color flow imaging, spectral Doppler, and M-Mode. No LVH. LV internal dimensions are normal. Wall motion is mildly decreased. Estimated EF greater 35 to 40%. Aortic valve is tricuspid. No evidence of stenosis by Doppler interrogation. Left atrium is dilated at 5.2 cm. Mitral valve shows no prolapse. Mild MR. Right-sided chambers are grossly normal. Trace TR. ECHOCARDIOGRAM REPORT [id number] BERTIN TADEO TRANSINT:[id number] Voice Confirmation ID: [id number] DOCUMENT ID: [id number] FRANK CLAUDIO MD at 0813 CC: [id number] DICTATION DATE: 02/16/21 0916 SALESPERSON WIGS: 02/16/21 1129 ADM IN [facility] [address] [place] [id number]
--- NOTE | 2021-02-20 08:13 | OP ---
PATIENT NAME: BERTIN TADEO MEDICAL RECORD: [id number] :56 LOCATION:[place] D.CV01 ADMISSION DATE:02/14/21 SURGEON: FRANK CLAUDIO MD DATE OF OPERATION: 02/14/2021 PROCEDURE: Left heart catheterization, selective coronary angiography, right femoral artery approach. CATHETERS: A 5-[place] sheath, 5/4 left and right Olvin, 5/4 pig. The procedure was well tolerated. The patient returned to the haro. Sheath removed. FINDINGS: Left ventriculography in 30-degree view shows global LV hypokinesis, reduced EF, estimated EF 20% to 25%. CORONARY ANATOMY: LEFT MAIN: Left main is free of disease. LAD at the takeoff of the first diagonal has a complex 80% stenosis that involves the ostium of the diagonal itself as well. CIRCUMFLEX: The circumflex has one OM about an 80% complex stenosis with what appears to be good target. RIGHT CORONARY ARTERY: Right coronary has about 70% stenosis. IMPRESSION: Multivessel coronary artery disease. 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 We will add a myopathic medications as well as antiarrhythmics. RECOMMENDATIONS: We will discuss with Dr. Hanna possible grafting, may treat AFib medically and hopefully LV function returned to normal. Further is based on clinical course. TRANSINT:[id number] Voice Confirmation ID: [id number] DOCUMENT ID: [id number] FRANK CLAUDIO MD at 0813 CC: [id number] DICTATION DATE: 02/14/21 1220 PACKING ROOM WORKER: 02/14/21 2111 ADM IN [facility] [address] [id number]
--- NOTE | 2021-02-20 08:13 | EC ---
PATIENT:BERTIN TADEO DATE OF SERVICE: 02/14/21 SEX: M MEDICAL RECORD: [id number] DATE OF : 56 LOCATION[facility] AGE OF PATIENT: 60 ADMISSION DATE: 02/14/21 REFERRING PHYSICIAN: INTERPRETING PHYSICIAN: FRANK CLAUDIO MD ECHOCARDIOGRAM REPORT ECHO CHARGES 5 ECHO LIMITED Date: 02/19/21 CLINICAL DIAGNOSIS: CAD ECHOCARDIOGRAPHIC MEASUREMENTS (adult normal given) AC root (d.<3.7cm) 3.6 cm LV Septum d (<1.2 cm> 1.0 cm Valve Excursion 1.9 cm LV Septum (systole) 1.1 cm Left Atria (s.<4.0cm> 4.0 cm LVPW d(<1.2cm) 1.1 cm RV (d.<2.3cm) 4.7 cm LVPW (sytole) 1.2 cm LV diastole(<5.6CM) 5.3 cm MV E-F(>70mm/sec) cm LV systole 4.3 cm LVOT Diameter 2.3 cm MV exc.(>10mm) cm Est.ejection fraction (50-75%) 40 % DOPPLER: LVIT cm/sec A 49 cm/sec E 102 cm/sec LA cm/sec RVSP 31 mmHg LVOT 82 cm/sec AOP1/2T m/s Asc. Ao 130 cm/sec RVOT 47 cm/sec RA 4.7 cm/sec PA 57 cm/sec AV Gradient Peak 6 mmHg AV Mean 3 mmHg AV Area cm MV Gradient Peak 6 mmHg MV Mean 1 mmHg MV Area cm COMMENTS: Third Steel Pourer: Xin BARTLETT Rental Car Deliverer: 3 Dr. Avitia TAPE# Pericardial Effusion Y DATE OF SERVICE: Adequate 2D, color flow imaging, spectral Doppler, and M-Mode. FINDINGS: No LVH. LV internal dimensions are normal. LV is mildly global hypo, EF is mildly reduced at 40% to 45%. Aortic valve is tricuspid. No evidence of stenosis by Doppler interrogation. Left atrium is normal at 4 cm. Mitral valve shows no prolapse. Mild MR. Right side is grossly normal. Mild TR. ECHOCARDIOGRAM REPORT [id number] BERTIN TADEO TRANSINT:[id number] Voice Confirmation ID: [id number] DOCUMENT ID: [id number] FRANK CLAUDIO MD at 0813 CC: [id number] DICTATION DATE: 02/19/21 1106 TRAINING AND DEVELOPMENT OFFICER: 02/19/21 1154 ADM IN [facility] [address] [place] [id number]
--- NOTE | 2021-02-20 09:39 | NUR ---
HOLDING BETAPACE UNTIL OKAYED WITH DR CABRAL, SPOKE WITH HIS NURSE COURTNI WHO STATED TO CLARIFY WITH HIM WHEN HE IS OUT OF OR, ALSO NOTIFIED COURTNI OF LOW UOP
--- NOTE | 2021-02-20 10:37 | NUR ---
PER DR CABRAL TPM TURNED OFF, UNDERLYING RHYTHM NSR 75, BETAPACE HELD
--- NOTE | 2021-02-20 14:43 | NUR ---
SWAN AND A LINE DCD PER PROTOCOL, APPROX 5 MINUTES AFTER SWAN DCD PT HR DROPPED TO 60 BEFORE SLOWLY RETURNING TO 70S, DR CABRAL NOTIFIED AND STATED TO DANGLE PT BUT NOT TO GET OOB, PT AWARE. AFTER THIS CONVERSATION PT BEGAN SAYING THAT HE HAD TO GET OOB DUE TO CHRONIC BACK PAIN GETTING WORSE, DESCRIBED PAIN RADIATING THROUGH SHOULDERBLADES, EKG DONE, DR DELANEY NURSE KAUSHIK NOTIFIED, ASHLEY BRIONES WITH CARDIOLOGY NOTIFIED, EKG SHOWS T WAVE DEPRESSION, PT STATES HE FEELS PAIN WOULD BE RELIEVED IF HE WAS ALLOWED TO GET OOB, REPOSITIONED IN BED AND IMPORTANCE OF STAYING IN BED AT THIS TIME PER DR CHANDLER EXPLAINED AND PT AGREEABLE, HERE AT THIS TIME AND ALSO AWARE.
--- NOTE | 2021-02-20 15:35 | NUR ---
PT DANGLED ON SIDE OF BED TOLERATED WELL, CHG BATH DONE
--- NOTE | 2021-02-20 17:09 | OP ---
PATIENT NAME: BERTIN TADEO MEDICAL RECORD: [id number] :56 LOCATION:D.[facility]I D.CV01 ADMISSION DATE:02/14/21 SURGEON: ALISA CABRAL MD DATE OF OPERATION: 02/19/2021 SURGEON: Alisa Cabral MD PROCEDURE PERFORMED: 1. Coronary artery bypass graft times 4 (left internal mammary artery to LAD, radial artery from aorta to obtuse marginal, and reverse saphenous vein segments from aorta to first diagonal, aorta to distal right coronary artery). 2. Open left radial artery harvest. 3. Endoscopic saphenous vein harvest. 4. Insertion of right common femoral artery sheath for arterial pressure monitoring. 5. Bilateral pulmonary vein radiofrequency ablation. 6. Application of a left atrial appendage occlusion device. PREOPERATIVE DIAGNOSES: Myocardial infarction, cardiomyopathy, congestive heart failure, coronary artery disease. POSTOPERATIVE DIAGNOSES: Myocardial infarction, cardiomyopathy, congestive heart failure, coronary artery disease. ANESTHESIA: General endotracheal anesthesia. ESTIMATED BLOOD LOSS: Total cardiopulmonary bypass with Cell Saver retransfusion. COMPLICATIONS: None. SPECIMENS: None. CONDITION: Stable. DISPOSITION: CV ICU. OPERATIVE FINDINGS: 1. Transesophageal echocardiography revealed 30% ejection fraction with 1+ mitral regurgitation. After separation from cardiopulmonary bypass on low dose epinephrine and dobutamine, the patient's ejection fraction was increased to 45%. Cardiac index was in the 2.5 range with PA diastolic pressures around 20 both before and after separation from cardiopulmonary bypass. 2. Good quality left internal mammary artery. The LAD was 2.1 mm vessel with severe distal disease. 3. Obtuse marginal was a 1.5 mm vessel with severe disease. The radial artery was a good conduit. 4. First diagonal 1.5 mm with severe disease. 5. Distal right coronary artery 2.5 mm with proximal plaque. 6. 500 cc serous right pleural effusion. 7. Bilateral pulmonary vein radiofrequency ablation was performed and a 50 mm left atrial appendage clip was placed on a rather broad-based left atrial appendage without difficulty. OPERATIVE INDICATION: Coronary artery disease, myocardial infarction, OPERATIVE REPORT [id number] BERTIN TADEO cardiomyopathy. PROCEDURE IN DETAIL: The patient was brought to the operative suite. General anesthesia was obtained, the patient was prepped and draped. Simultaneously, endoscopic harvest of right lower extremity was performed, side branch divided with electrocautery. Vessel ligated proximally and distally and removed. The side branches were tied and thin. Sites were oversewn with Prolene. Later, the leg was closed in 2 layers. The left radial artery harvest was performed with open harvest along the volar portion of the arm over the radial artery. Side branches were clipped, the vessel was divided proximally and distally. The stumps were oversewn with Prolene and clipped and the vessel was perfused with a papaverine and blood containing solution and kept wrapped in a papaverine sponge. Cardizem was given during the radial harvest. The arm was irrigated and closed in [address] in the patient's side. Median sternotomy incision was made. Subcutaneous tissue divided with electrocautery. Sternum was divided with a saw. The left hemisternum was elevated. Left pleural cavity was entered. Left internal mammary artery and vein was taken down as a pedicle graft. Sternal retractor was placed. Pericardium was opened. Heparin was given. The aorta was cannulated. Dual stage venous cannula was inserted. The internal mammary clipped distally and made ready for anastomosis. Activated clotting times were appropriately elevated. The patient's temperature was cooled, sites for distal anastomosis were selected, antegrade cardioplegia cannula was inserted. Crossclamp was placed. Cardioplegia was given antegrade. This was repeated at 20-minute intervals including down the completed grafts. Distal anastomosis was performed in standard technique. Proximal anastomosis with single cross-clamp technique, 3.5 mm punch for the direct anastomosis of the radial artery to the aorta, 4.0 mm punch for the veins. Aortic root de-aired. Vein grafts were tied down. Vein grafts were de-aired and flow restored. Proximal and distal anastomotic sites were inspected for bleeding. Hemostasis was ensured. A single 6-0 and one of the proximals, the patient was AV paced with temporary wires, weaned from cardiopulmonary bypass and was stable. The patient was decannulated. Aortic cannulation site was oversewn. Protamine was given. Thorough irrigation was undertaken. The graft lay appropriately. Left chest was evacuated and irrigated, 500 cc of serous right pleural effusion was evacuated. The internal mammary harvest site was inspected for bleeding. The pericardial fat was loosely reapproximated in the midline. Sternum was closed with wires. Fascia was closed. Subcutaneous tissue was closed. Skin was closed. Dermabond was placed. The needle and sponge counts were reported as correct. The patient was taken to the ICU in stable condition. TRANSINT:[id number] Voice Confirmation ID: [id number] DOCUMENT ID: [id number] OPERATIVE REPORT [id number] BERTIN TADEO, ALISA Wood MD at 1709 CC: FRANK CLAUDIO MD [id number] DICTATION DATE: 02/19/21 1507 ORAL SURGEON: 02/19/212027 ADM IN [place] [id number] [place] [id number]
--- NOTE | 2021-02-20 17:50 | NUR ---
1700 DR CABRAL IN UNIT ORDERS TO DROP DOBUTAMINE TO 4MCG NOW AND TO 3MCG AT 1900
[2021-02-21] VITALS (21 sets, daily range): BP systolic 104–131; BP diastolic 67–85
[2021-02-21 05:20] LABS: BASOPHILS 0.3 % (0-2); EOSINOPHILS 0.3 % (0-7); HEMOGLOBIN 11.4 g/dL (13.5-17.5); LYMPHOCYTES 11.4 % (15-50); MCH 27.8 pg (26.0-34.0); MCHC 31.6 g/dL (31.0-37.0); MCV 88.1 fL (80.0-100.0); MEAN PLATELET VOLUME 9.9 fL (7.4-10.4); MONOCYTES 9.6 % (2-11); NEUTROPHILS 78.4 % (40-80); PLATELET COUNT 187 10x3/uL (130-400); RBC 4.08 10x6/uL (4.20-6.10); RDW 13.3 % (11.5-14.5)
[2021-02-21 05:24] LABS: WBC 14.5 10x3/uL (4.8-10.8)
[2021-02-21 05:41] LABS: ALBUMIN 2.2 g/dL (3.4-5.0); ALKALINE PHOSPHATASE 108 U/L (30-120); ALT (SGPT) 58 U/L (10-68); BILIRUBIN - TOTAL 0.54 mg/dL (0.2-1.3); CALC OSMOLALITY 270 mosm/kg (275-300); CALCIUM 8.4 mg/dL (8.5-10.1); CARBON DIOXIDE 28.2 mmol/L (21.0-32.0); CHLORIDE - SERUM 101 mmol/L (98-107); GLUCOSE 124 mg/dL (74-106); POTASSIUM - SERUM 4.6 mmol/L (3.5-5.1); SODIUM 135 mmol/L (136-145); UREA NITROGEN 13 mg/dL (7-18); eGFR NON AFRICAN AMERICAN 80 mL/min (90-120)
--- NOTE | 2021-02-21 11:04 | NUR ---
Nutrition Follow-up: POD 2 CABG. Tolerating PO intake. Diet: Cardiac Wt: 164.2# (02/21) Labs noted: Na 135, Glu 124, Ca 8.4, Alb 2.2 Meds noted: Miralax, Senokot, Protonix -Encourage PO intake and honor food preferences within diet restrictions. -Monitor wt. -RD follow-up: 02/23
[2021-02-22] VITALS (26 sets, daily range): BP systolic 79–148; BP diastolic 47–86
[2021-02-22 05:38] LABS: BASOPHILS 0.9 % (0-2); EOSINOPHILS 1.2 % (0-7); HEMATOCRIT 32.3 % (42.0-54.0); HEMOGLOBIN 10.4 g/dL (13.5-17.5); LYMPHOCYTES 16.3 % (15-50); MCH 28.3 pg (26.0-34.0); MCHC 32.3 g/dL (31.0-37.0); MCV 87.6 fL (80.0-100.0); MEAN PLATELET VOLUME 9.8 fL (7.4-10.4); MONOCYTES 11.4 % (2-11); NEUTROPHILS 70.2 % (40-80); PLATELET COUNT 201 10x3/uL (130-400); RBC 3.69 10x6/uL (4.20-6.10); RDW 13.1 % (11.5-14.5)
[2021-02-22 05:39] LABS: WBC 10.6 10x3/uL (4.8-10.8)
[2021-02-22 06:04] LABS: ALKALINE PHOSPHATASE 110 U/L (30-120); ALT (SGPT) 45 U/L (10-68); BILIRUBIN - TOTAL 0.45 mg/dL (0.2-1.3); CALC OSMOLALITY 270 mosm/kg (275-300); CALCIUM 8.4 mg/dL (8.5-10.1); CHLORIDE - SERUM 101 mmol/L (98-107); CREATININE - SERUM 0.9 mg/dL (0.6-1.3); GLUCOSE 128 mg/dL (74-106); PROTEIN - SERUM 5.9 g/dL (6.4-8.2); SODIUM 135 mmol/L (136-145); UREA NITROGEN 10 mg/dL (7-18); eGFR NON AFRICAN AMERICAN > 90 mL/min (90-120)
[2021-02-23] VITALS (28 sets, daily range): BP systolic 86–132; BP diastolic 44–91
[2021-02-23 05:54] LABS: BASOPHILS 0.9 % (0-2); EOSINOPHILS 2.2 % (0-7); HEMATOCRIT 33.5 % (42.0-54.0); HEMOGLOBIN 10.7 g/dL (13.5-17.5); LYMPHOCYTES 20.6 % (15-50); MCH 27.9 pg (26.0-34.0); MCHC 31.9 g/dL (31.0-37.0); MCV 87.5 fL (80.0-100.0); MEAN PLATELET VOLUME 9.7 fL (7.4-10.4); MONOCYTES 11.5 % (2-11); NEUTROPHILS 64.8 % (40-80); PLATELET COUNT 233 10x3/uL (130-400); RBC 3.83 10x6/uL (4.20-6.10); RDW 13.5 % (11.5-14.5); WBC 8.8 10x3/uL (4.8-10.8)
[2021-02-23 06:17] LABS: ALKALINE PHOSPHATASE 240 U/L (30-120); BILIRUBIN - TOTAL 0.54 mg/dL (0.2-1.3); CALC OSMOLALITY 267 mosm/kg (275-300); CALCIUM 8.6 mg/dL (8.5-10.1); CARBON DIOXIDE 27.8 mmol/L (21.0-32.0); CHLORIDE - SERUM 101 mmol/L (98-107); CREATININE - SERUM 0.9 mg/dL (0.6-1.3); GLUCOSE 117 mg/dL (74-106); POTASSIUM - SERUM 3.9 mmol/L (3.5-5.1); SODIUM 134 mmol/L (136-145); UREA NITROGEN 10 mg/dL (7-18); eGFR NON AFRICAN AMERICAN > 90 mL/min (90-120)
[2021-02-23 06:26] LABS: ALT (SGPT) 82 U/L (10-68)
--- NOTE | 2021-02-23 09:24 | TEE ---
PATIENT:BERTIN TADEO MEDICAL RECORD: [id number] LOCATION:[place] [address] AGE OF PATIENT: 60 ADMISSION DATE: 02/14/21 SEX: M REFERRING PHYSICIAN: INTERPRETING PHYSICIAN: FRANK CLAUDIO MD TRANSESOPHAGEAL ECHOCARDIOGRAM Date: 02/19/21 ROSALBA CHARGE Y INDICATIONS: CABG PREMEDICATIONS: PATIENT'S RESPONSE PROCEDURE DOPPLER MEASUREMENTS: LVIT LA PA 57 RA 4.7 LVOT 82 RVOT 47 Asc. Ao 130 AV Gradient Peak 6 AV Mean 3 AV Area MV Gradient Peak 6 MV Mean 1 MV Area INTERPRETATION: Doppler: 2-D: COLOR FLOW DOPPLER NORMAL SALINE STUDY: MISCELLANOUS: DIAGNOSIS: PLAN: High Speed Printer Operator:3 Dr. Avitia Magento Developer: Xin BARTLETT COMMENTS: DATE OF SERVICE: 02/20/2021 PROCEDURE: Intraoperative ROSALBA. FINDINGS: Preop shows probable LVH. LV internal dimensions are normal. LV is globally hypokinetic with reduced EF 30%. Aortic valve is tricuspid with good valve excursion. Left atrium appears normal. Mitral valve appears normal. Trace to mild MR. Postoperative shows marked improvement in LV function with EF probably lower limits of normal at 50%. Aortic valve is tricuspid. Left atrium TRANSESOPHAGEAL ECHOCARDIOGRAM REPORT [id number] BERTIN TADEO appears normal. Mitral valve appears normal. Trace MR. TRANSINT:[id number] Voice Confirmation ID: [id number] DOCUMENT ID: [id number] at 0924 CC: [id number] DICTATION DATE: 02/20/21 1441 ANIMAL CARE GIVER: 02/20/21 1740 [place] [address]
--- NOTE | 2021-02-23 09:50 | NUR ---
Nutrition Reassessment/Follow-up: POD 4 CABG. Eating well. Diet: Cardiac PO intake: 75-100% Wt: 164.2# (02/23) Labs noted: Na 134, Glu 117, Alb 2.0, elev LFTs Meds noted: Florajen, Miralax, Senokot, Protonix Nutrition Intervention: -Nutrition needs, Dx, & goals unchanged since initial assessment. -RD will follow up within 3-4 days.
[2021-02-24] VITALS (18 sets, daily range): BP systolic 97–127; BP diastolic 58–91
[2021-02-24 05:15] LABS: BASOPHILS 1.2 % (0-2); HEMATOCRIT 30.2 % (42.0-54.0); HEMOGLOBIN 9.7 g/dL (13.5-17.5); MCH 28.2 pg (26.0-34.0); MCHC 32.3 g/dL (31.0-37.0); MCV 87.4 fL (80.0-100.0); MONOCYTES 11.7 % (2-11); NEUTROPHILS 60.1 % (40-80); PLATELET COUNT 233 10x3/uL (130-400); RBC 3.45 10x6/uL (4.20-6.10); RDW 13.3 % (11.5-14.5)
[2021-02-24 05:17] LABS: WBC 6.5 10x3/uL (4.8-10.8)
[2021-02-24 05:39] LABS: ALBUMIN 1.9 g/dL (3.4-5.0); ALKALINE PHOSPHATASE 251 U/L (30-120); BILIRUBIN - TOTAL 0.46 mg/dL (0.2-1.3); CALC OSMOLALITY 275 mosm/kg (275-300); CALCIUM 8.7 mg/dL (8.5-10.1); CARBON DIOXIDE 25.9 mmol/L (21.0-32.0); CHLORIDE - SERUM 104 mmol/L (98-107); CREATININE - SERUM 0.9 mg/dL (0.6-1.3); GLUCOSE 99 mg/dL (74-106); LDH 231 U/L (85-227); PRO BNP 2458 pg/mL (0-125); PROTEIN - SERUM 5.4 g/dL (6.4-8.2); SODIUM 138 mmol/L (136-145); UREA NITROGEN 12 mg/dL (7-18); eGFR NON AFRICAN AMERICAN > 90 mL/min (90-120)
[2021-02-24 05:40] LABS: ALT (SGPT) 120 U/L (10-68)
--- NOTE | 2021-02-24 11:13 | NUR ---
PACER WIRES REMOVED BY DR CABRAL-GUERO DRAIN REMOVED BY DR CABRAL-TOLERATED WELL SR ON MONITOR-ROOM AIR-SAT 95-R IJ D/C'D ORDERED-PER POLICY-TIP INTACT-HEMOSTASIS OBTAINED
--- NOTE | 2021-02-24 13:47 | NUR ---
1030-CONFIRMED WITH DR JANE FOR DISCHARGE DIRECTED BY DR CABRALQMTSG-EPANYMXYSQH-OBYSNAIXT TO BE OKAYED BY DR DOMINIQUE
--- NOTE | 2021-02-24 17:59 | NUR ---
AMBULATING IN RM EASILY ON RM AIR
[2021-02-25] VITALS (7 sets, daily range): BP systolic 95–117; BP diastolic 61–97
[2021-02-25 06:01] LABS: BASOPHILS 0.2 % (0-2); EOSINOPHILS 2.6 % (0-7); HEMATOCRIT 35.2 % (42.0-54.0); HEMOGLOBIN 11.2 g/dL (13.5-17.5); IMMATURE GRANULOCYTES 0.9 % (0-5); LYMPHOCYTE ABS# 2.05 10x3/uL (1.32-3.57); MCH 28.1 pg (26.0-34.0); MCHC 31.8 g/dL (31.0-37.0); MCV 88.2 fL (80.0-100.0); MONOCYTES 10.6 % (2-11); NEUTROPHIL ABS# 5.93 10x3/uL (1.78-5.38); NEUTROPHILS 63.7 % (40-80); PLATELET COUNT 312 10x3/uL (130-400); RBC 3.99 10x6/uL (4.20-6.10); RDW 13.3 % (11.5-14.5); WBC 9.3 10x3/uL (4.8-10.8)
[2021-02-25 06:40] LABS: BILIRUBIN - TOTAL 0.55 mg/dL (0.2-1.3); CALCIUM 8.9 mg/dL (8.5-10.1); CREATININE - SERUM 1.1 mg/dL (0.6-1.3); POTASSIUM - SERUM 4.6 mmol/L (3.5-5.1); PROTEIN - SERUM 6.4 g/dL (6.4-8.2)
[2021-02-25 07:41] LABS: ALBUMIN 2.2 g/dL (3.4-5.0); ANION GAP 15.1 mmol/L (8-16); CARBON DIOXIDE 23.5 mmol/L (21.0-32.0)
--- NOTE | 2021-02-25 09:29 | NUR ---
AMBULATING INDEPENDENTLY IN RM-SR AT THIS TIME ON MONITOR
[2021-02-25] MEDS ORDERED: ALDACTONE25 MG PO (11:26)
[2021-02-25] MEDS ORDERED: VIBRAMYCIN 100100 MG PO (11:26)
[2021-02-25] MEDS ORDERED: CYCLOBENZAPRINE10 MG PO (11:26)
[2021-02-25] MEDS ORDERED: OMNICEF300 MG PO (11:26)
[2021-02-25] MEDS ORDERED: COREG 3.1253.125 MG PO (11:27)
[2021-02-25] MEDS ORDERED: CARDIZEM30 MG PO (11:27)
[2021-02-25] MEDS ORDERED: LOW DOSE ASPIRI81 M1 PO (11:27)
[2021-02-25] MEDS ORDERED: Senokot-S Tablet PO (11:29)
[2021-02-25] MEDS ORDERED: MIRALAX17 GM PO (11:29)
[2021-02-25] MEDS ORDERED: FLORAJEN DIGES1 EACH PO (11:29)
[2021-02-25] MEDS ORDERED: Xopenex 0.63 MG INH INH (11:29)
[2021-02-25] MEDS ORDERED: Xopenex 0.63 MG INH UPD (11:29)
[2021-02-25] MEDS ORDERED: PROTONIX40 MG PO (11:29)
[2021-02-25] MEDS ORDERED: SYNTHROID25 MCG PO (11:29)
[2021-02-25] MEDS ORDERED: LIDODERM 5 %1 PATCH TRANSDERM (11:29)
[2021-02-25] MEDS ORDERED: BETADINE OINTMENT TP (11:29)
[2021-02-25] MEDS ORDERED: PERCOCET 10-321 EAC1 PO (11:31)
[2021-02-25] MEDS ORDERED: PERCOCET 5-3251 TAB PO (12:54)
--- NOTE | 2021-02-25 13:09 | NUR ---
1300-DR DOMINIQUE AT BEDSIDE-REQUESTED PT TO AMBULATE ON ROOM AIR WITH CONT PULSE [id number] MANAGEMENT NOTIFIED FOR POSSIBLE NEED FOR O2-REVIEWED WITH PT AND MEDICATION PRESCRIPTION LST -EXPRESSED STRONG CONCERN WITH COST-LABORER AIRPORT MAINTENANCE INFORMED OF SAME-STRESSED FOR PT TO WAIT UNTIL RESOLVED ISSUE
--- NOTE | 2021-02-25 15:18 | NUR ---
CASE MANAGEMENT AT BEDSIDE-REVIEWED WITH PT AND COST OF MEDICATION AND [facility]-PT CHOSE TO CHANGE PRESCRIPTIONS TO [facility]-SAME CALLED IN -MADE AWARE THAT PAIN MEDICATION SCRIPT CANNOT BE CHANGED FROM [facility](ORIGINAL REQUESTED PHARMACY)-PT VERBAL PLAN AT THIS TIME TO FILL PAIN MEDICATION FIRST-FOLLOWED BY PRESCRIPTION AT [facility]-DISCHARGED TO HOME VIA WHEELCHAIR
== END 2021-02-25 15:27 | disposition home or self-care (01) | DRG 233 ==
LOC: D.ER 22:43 → D.M2 02-14 04:38 → D.CVICU 02-14 04:38 → D.M2 02-14 11:29 → D.CVICU 02-15 18:28
PROVIDERS: Family Medicine; Internal Medicine Interventional Cardiology; Internal Medicine Pulmonary Disease; Thoracic Surgery (Cardiothoracic Vascular Surgery); ADMIT Emergency Medicine; ATTEND Emergency Medicine
PROC: B2111ZZ Fluoroscopy of Multiple Coronary Arteries using Low Osmolar Contrast (ICD-10-PCS; 2021-02-14)
PROC: B2151ZZ Fluoroscopy of Left Heart using Low Osmolar Contrast (ICD-10-PCS; 2021-02-14)
PROC: 4A023N7 Measurement of Cardiac Sampling and Pressure, Left Heart, Percutaneous Approach (ICD-10-PCS; principal; 2021-02-14 10:47)
PROC: 0210099 Bypass Coronary Artery, One Artery from Left Internal Mammary with Autologous Venous Tissue, Open Approach (ICD-10-PCS; 2021-02-19)
PROC: 021209W Bypass Coronary Artery, Three Arteries from Aorta with Autologous Venous Tissue, Open Approach (ICD-10-PCS; 2021-02-19)
PROC: 06BP4ZZ Excision of Right Saphenous Vein, Percutaneous Endoscopic Approach (ICD-10-PCS; 2021-02-19)
PROC: 02L70ZK Occlusion of Left Atrial Appendage, Open Approach (ICD-10-PCS; 2021-02-19)
DX: I21.3 ST elevation (STEMI) myocardial infarction of unspecified site (principal); I50.21 Acute systolic (congestive) heart failure; I48.20 Chronic atrial fibrillation, unspecified; I25.10 Atherosclerotic heart disease of native coronary artery without angina pectoris; E03.9 Hypothyroidism, unspecified; D72.829 Elevated white blood cell count, unspecified; N28.9 Disorder of kidney and ureter, unspecified; I27.20 Pulmonary hypertension, unspecified; G89.29 Other chronic pain; D64.9 Anemia, unspecified